=== PATIENT | female | born 1930 | race Caucasian/White ===

== ENCOUNTER → 2016-04-01 | Outpatient (CLI) | payer OTHER, MEDICARE ==
[~2016-04-01] MED LIST: ALBUTEROL2.5 MG/0.5 INH; ALIGN4 MG PO; ASACOL; CALCIUM; COLACE100 MG PO; DULCOLAX PO; GABAPENTIN 100100 MG PO; HYDROXYZINE HCL25 M1 PO; LIDODERM 5%1 PATCH TOP; MACROBID 100 M100 M1 PO; MEDROL DOSPAK21 TA1 PO; MIRALAX17 GM PO; MUCINEX TA600 MG/TA2 PO; MULTIVITAMINS PO; PERCOCET PO; PREDNISONE 10 M10 MG PO; PREDNISONE 20 M20 MG PO; PROAIR HFA8.5 GM INH; PULMICORT0.25 MG/3 INH; SINGULAIR 10 MG10 M1 PO; SYSTANE 0.3-0.1 EACH OPHTHALMIC; TRAMADOL 50 MG50 MG PO; TYLENOL325 MG PO; VENTOLIN HFA 1818 GM INH; VISTARIL 25 MG25 M1 PO; VITAMIN D1000 UNI1 OR; XARELTO10 MG PO; ZYRTEC10 MG PO
== END ==
LOC: ULTRA 14:49
DX: N64.4 Mastodynia (principal)

== ENCOUNTER 2016-07-17 19:05 | Emergency (ER) | payer OTHER, MEDICARE ==
[~2016-07-17] VITALS: Ht 157.5 cm; Wt 51.3 kg
[2016-07-18] MEDS ORDERED: PERCOCET 5-3251 EACH PO (00:02)
[2016-07-18 00:30] VITALS: BP 148/72
== END 2016-07-18 00:30 | disposition home or self-care (01) ==
LOC: ER 19:05
DX: S62.501A Fracture of unspecified phalanx of right thumb, initial encounter for closed fracture (principal); S05.31XA Ocular laceration without prolapse or loss of intraocular tissue, right eye, initial encounter; S01.511A Laceration without foreign body of lip, initial encounter; S51.012A Laceration without foreign body of left elbow, initial encounter; S01.21XA Laceration without foreign body of nose, initial encounter; S80.211A Abrasion, right knee, initial encounter; J45.909 Unspecified asthma, uncomplicated; Z90.49 Acquired absence of other specified parts of digestive tract; Z90.710 Acquired absence of both cervix and uterus; Z88.5 Allergy status to narcotic agent; Z88.6 Allergy status to analgesic agent; Z88.0 Allergy status to penicillin; Z88.1 Allergy status to other antibiotic agents; W01.0XXA Fall on same level from slipping, tripping and stumbling without subsequent striking against object, initial encounter; Y93.89 Activity, other specified; Y92.89 Other specified places as the place of occurrence of the external cause; Y99.8 Other external cause status

== ENCOUNTER → 2016-10-29 | Outpatient (CLI) | payer OTHER, MEDICARE ==
[~2016-10-29] MED LIST changes: +PERCOCET 5-3251 EACH PO
== END ==
LOC: RAD 10:09
DX: Z12.31 Encounter for screening mammogram for malignant neoplasm of breast (principal)

== ENCOUNTER → 2016-11-05 | Outpatient (CLI) | payer OTHER, MEDICARE | LOC: CAT 13:36 | DX: M47.896 Other spondylosis, lumbar region (principal); M16.0 Bilateral primary osteoarthritis of hip; R10.2 Pelvic and perineal pain ==

== ENCOUNTER → 2016-11-10 | Outpatient (CLI) | payer OTHER, MEDICARE | LOC: MRI 09:22 | DX: S32.039A Unspecified fracture of third lumbar vertebra, initial encounter for closed fracture (principal); M51.37 Other intervertebral disc degeneration, lumbosacral region; X58.XXXA Exposure to other specified factors, initial encounter; Y93.89 Activity, other specified; Y92.89 Other specified places as the place of occurrence of the external cause; Y99.8 Other external cause status ==

== ENCOUNTER 2017-08-18 18:57 | Inpatient (IN) | payer OTHER, MEDICARE ==
[~2017-08-18] VITALS: Ht 154.9 cm; Wt 61.2 kg
--- NOTE | ~2017-08-18 | H ---
[facility] [place] [address] HISTORY AND PHYSICAL Name: ELPIDIO WALTERS Room #: 418-P ADM IN M.R.#: [id number] Admission: 08/18/17 Attend Phys: Caleb Beverly MD Discharge: Date of : 31 Report #: [id number] THIS REPORT FOR: //name// CC: Caleb Beverly DATE OF SERVICE: 08/18/2017 This is a patient with known asthma, who presented to the Emergency Room after falling at [facility]. HISTORY OF PRESENT ILLNESS: This patient has an underlying history of asthma and allergies with chronic sinusitis and on Thursday, 08/15, she began to cough. She did not have fever, chills, night sweats or malaise at that time, but did have a deep cough, which persisted. On 08/17, she noticed that she was unable to eat and Thursday night, she did not sleep. She remained with malaise throughout the day on 08/18 and at the evening meal, she vomited while attempting to eat and subsequently lost consciousness. The patient fell, struck her head, was brought to the Emergency Room, where she was found to have a leukocytosis of 15,000 and a pulmonary infiltrate in the right infrahilar region consistent with community-acquired pneumonia. She was hospitalized for care. PAST MEDICAL HISTORY: Has allergies and asthma with chronic sinusitis. In 2000, had a seizure. 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 Has had osteoarthritis, colon polyps, microscopic colitis, hypertension and periodontal disease. PAST SURGICAL HISTORY: In 1956, had cholecystectomy and appendectomy; 1981, total abdominal hysterectomy, bilateral salpingo-oophorectomy and MMK procedure. Has had excision of a scalp cyst, left breast cyst; right breast mammotome biopsy; left foot surgery; bilateral cataracts; and in 04/2016 had surgical repairs of hip, wrist and humerus fractures. ALLERGIES: PENICILLIN, SULFA, ASPIRIN, VANCOMYCIN and ERYC (ERYTHROMYCIN BASE). CURRENT MEDICATIONS: Singulair 10 mg, albuterol inhaler p.r.n., famotidine 20 mg b.i.d., losartan 50 with HCTZ 12.5 mg, alprazolam 0.25 mg at bedtime, and escitalopram 10 mg daily. SOCIAL HISTORY: The patient is , lives at [facility] with her . Does not smoke, does not consume alcohol or use recreational drugs. She has macular degeneration and has had declining performance status. REVIEW OF SYSTEMS: Denies having fever, chills or sweats. Cough has been minimally productive. She had anorexia and did vomit last evening, has had no diarrhea or abdominal pain. [facility] [address] [place] [address] HISTORY AND PHYSICAL Name: ELPIDIO WALTERS MILAN Room #: 418-P ADM IN M.R.#: [id number] Admission: 08/18/17 Attend Phys: Caleb Beverly MD Discharge: Date of : 31 Report #: [id number] PHYSICAL EXAMINATION: GENERAL: This is an elderly female who is warm to touch, slightly diaphoretic. LUNGS: Show coarse rhonchi and no rales in the mid posterior right lung, with the left being essentially clear. CARDIOVASCULAR: There is a brief aortic insufficiency murmur. Heart rate is 82 and regular. No peripheral edema is present. ABDOMEN: Soft and nontender. NEUROLOGIC: The patient is awake, alert, oriented, moves all extremities, has no focal neurologic deficit. IMPRESSION: 1. Community-acquired pneumonia, right mid lung. 2. Syncope secondary to #1. 3. Asthma, exacerbated secondary to #1. 4. Benign essential hypertension. PLAN: I will resume her home medications with reduced dose of losartan. Treat with combination of azithromycin and ceftriaxone in spite of her known PENICILLIN allergy. DuoNeb treatments, oral prednisone to begin at 30 mg a day with the expected hospital stay of 48 hours. We will ask for physical therapy assessment because of falls and balance issues. <ELECTRONICALLY SIGNED> By: Caleb Beverly MD 08/20/17 0625 0721 0750 Caleb Beverly MD /nt
--- NOTE | ~2017-08-18 | PATH ---
[facility] [address] [place] [address] PATHOLOGY RPT PROCEDURE Name: ELPIDIO WALTERS Room #: 225-P ADM IN M.R.#: [id number] Admission: 08/18/17 Date of : 31 Discharge: Report #: [id number] Path Case #: [id number] Note [facility] Accession Number: [id number] TESTS RESULT FLAG UNITS REF RANGE LAB Clinician Provided Cytology Information No. of containers..01 Other (Miscellaneous) Source: BRONCHIAL WASHING DIAGNOSIS: 02 BRONCHIAL WASHING NEGATIVE FOR MALIGNANT CELLS. SCANT CELLULARITY. FUNGAL ORGANISMS MORPHOLOGICALLY CONSISTENT WITH "ROMEO" SPECIES ARE PRESENT. NORMAL BRONCHIAL CELLS AND MACROPHAGES ARE PRESENT. Signed out by: Paula Malhotra MD, Pathologist NPI- [id number] Performed by: Isaias Alvarado, Solid Waste Disposal Manager ([facility]) Gross description: 01 12ML, COLORLESS, CLOUDY /LCS FLAG LEGEND: L-Low Normal,H-High Normal,LL-Alert Low,HH-Alert High <-Panic Low,>-Panic High,A-Abnormal,AA-Critical Abnormal Performed at: [address] [place] [address] Guanako Yang MD, [address] [address] Paula Malhotra MD, Performed at: [address], [place], [place] [id number] MD Guanako Yang MD Phone: [phone]
--- NOTE | ~2017-08-18 | EKG ---
[place] [address] [email or web address] [place] [address] ELECTROCARDIOGRAM REPORT Name: ELPIDIO WALTERS MILAN Room #: 418-P ADM IN M.R.#: [id number] Admission: 08/18/17 Attend Phys: Caleb Beverly MD Discharge: Date of : 31 Report #: [id number] THIS REPORT FOR: //name// [facility] ED Test Date: 2017-08-18 Test Time: 19:02:47 Pat Name: ELPIDIO WALTERS Department: Room: Gender: F Drafter (Cad) Electrical: MZOOK : 1930 Requested By: Jesus Luciano Order Number: [id number] MD: Ronald Gilliam Measurements Intervals [place] Rate: 78 P: 65 SC: 146 QRS: 65 QRSD: 89 T: 58 QT: 387 QTc: 441 Interpretive Statements Sinus rhythm No significant abnormality Compared to ECG 04/19/2016 08:15:48 Atrial premature complex(es) no longer present Electronically Signed On 08-19-2017 7:36:35 CDT by Ronald Gilliam [email or web address] <ELECTRONICALLY SIGNED> By: Ronald Gilliam MD, [facility] 08/19/17 0736 01 01 Ronald Gilliam MD, [facility] /EPI
--- NOTE | ~2017-08-18 | D ---
[facility] [address] [address] [address] DISCHARGE SUMMARY Name: ELPIDIO WALTERS Room #: 225-P [facility] IN M.R.#: [id number] Admission: 08/18/17 Attend Phys: Caleb Beverly MD Discharge: 08/27/17 Date of : 31 Report #: [id number] THIS REPORT FOR: //name// CC: Caleb Beverly DATE OF SERVICE: 08/27/2017 DATE OF ADMISSION: 08/18/2017 DATE OF DISCHARGE: 08/27/2017 HOSPITAL COURSE: This patient presented to the emergency department on the evening of 08/18/2017 where she was initially seen by nurse practitioner, Jesus Luciano. The patient had nausea, vomiting, and syncope. She had not been eating well for approximately 2 days and when fed dinner, she had a couple of bites, then vomited up food. Her reported that she subsequently "fainted for a few seconds" and fell out of the chair. By the time she was in the emergency department, the patient was alert and ambulatory. In the emergency department, the patient reported a 3-day history of cough, which preceded the episode of vomiting. She was somewhat short of air and reported some mucus production without fever or chills. She was assessed by Jesus Luciano and chest x-ray suggested increased focal opacity in the right infrahilar region suggestive of focal pneumonia or aspiration. DuoNeb breathing treatment was administered. The patient was initiated on a combination of methylprednisolone, ceftriaxone, and azithromycin and was hospitalized with a diagnosis of community-acquired pneumonia with nausea, vomiting, and syncope HOSPITAL COURSE: The patient was admitted with pneumonia, which on CT scan was localized in the right middle lobe. The patient was seen in pulmonary consultation by Fly Atkins MD, who on 08/21/2017 performed fiberoptic bronchoscopy with clearance of mucus plugging and debris in the right middle lobe and bronchus intermedius. Antibiotic coverage was converted to meropenem to cover aspirated organisms, but cultures failed to identify a dominant bacteria. Of note, bronchial secretions contained many yeast, felt to be a probable upper respiratory contaminant. The patient underwent video swallow, during which the patient had difficulty clearing a barium tablet from her vallecula. Her aspiration risk was judged by speech therapy to be relatively low, but in discussions with Dr. Hooks, the 6-month history of voice change in combination with aspiration and the video swallow findings, it is obvious the patient has a neurodegenerative process, which places her at risk for recurrence. The patient was treated with flutter valve frequent aerosolized DuoNeb, guaifenesin orally, and intravenous meropenem, but imaging of the chest showed persistent infiltrate and increased atelectasis in the right middle lobe when [facility] [address] [place] [address] DISCHARGE SUMMARY Name: ROMEOELPIDIO MILAN Room #: 225-P [facility] IN M.R.#: [id number] Admission: 08/18/17 Attend Phys: Caleb Beverly MD Discharge: 08/27/17 Date of : 31 Report #: [id number] last compared 08/23/2017. Ongoing pulmonary toilet was recommended. The patient admits deficits with transfers and balance. She was seen in consultation on 08/27/[address] Foster Bee who recommended transfer to acute inpatient rehab where she can continue her pulmonary care. During hospitalization, the patient had significant hypertension requiring modification of her blood pressure medications, which resulted in improvement. FINAL DIAGNOSES: 1. Right middle lobe pneumonia and atelectasis, aspiration type. 2. Acute pulmonary aspiration. 3. Asthma, chronic with acute exacerbation secondary to #1. 4. Benign essential hypertension. 5. Neurodegenerative disorder, unclassified. DISCHARGE MEDICATIONS: Spironolactone 12.5 mg daily, montelukast 10 mg daily, losartan 100 mg daily, fluconazole 100 mg suspension daily, citalopram 10 mg daily, azithromycin 500 mg daily, amlodipine 5 mg daily, pantoprazole 40 mg daily, hydrochlorothiazide 12.5 mg daily, prednisone 20 mg b.i.d., meropenem 500 mg q. 8 hours, Lovenox 40 mg subcutaneous daily, aerosolized ipratropium, albuterol, budesonide, alprazolam 0.5 mg at bedtime for sleep and alprazolam 0.25 mg q. 4 hours for anxiety. DISPOSITION: The patient is transferred to the acute inpatient Service under the care of Dr. Bee. CONSULTANTS: 1. Foster Bee MD (rehabilitation medicine). 2. Fly Atkins MD, pulmonary medicine. PROCEDURES: Fiberoptic bronchoscopy. COMPLICATIONS: None. <ELECTRONICALLY SIGNED> By: Caleb Beverly MD 08/29/17 1111 0554 0818 Caleb Beverly MD /nt
--- NOTE | ~2017-08-18 | P ---
[facility] [place] [address] [address] PROCEDURE REPORT Name: ELPIDIO WALTERS Room #: 452-P ADM IN M.R.#: [id number] Admission: 08/18/17 Attend Phys: Caleb Beverly MD Discharge: Date of : 31 Report #: [id number] THIS REPORT FOR: //name// CC: Caleb Beverly MD DATE OF SERVICE: 08/21/2017 PROCEDURE: Fiberoptic bronchoscopy with clearance of mucus plugging and debris in right middle lobe and bronchus intermedius. ASA classification class 2. PROCEDURE NOTATION: After discussing risks, benefits of planned procedure with the patient, she desired to proceed. After obtaining informed consent, she was brought to mine laborer 3 where she was placed on continuous cardiopulmonary monitoring and supplemental oxygen, given 2% lidocaine nebulized to anesthetize the upper respiratory tract. Once accomplished, she received conscious sedation, a total of 3 mg of Versed were titrated during the procedure for adequate sedation. Bronchoscope was then passed through an oral bite block until the vocal cords were visualized. Lidocaine 1% was instilled in the vocal cords to provide topical anesthesia. Bronchoscope was then passed in the trachea where 1% lidocaine was instilled in the tracheobronchial tree bilaterally to provide topical anesthesia. Once complete, airways were surveyed. FINDINGS: Mainstem lower segmental and subsegmental bronchi were all explored and appeared patent without any significant anatomic variation or disease with the exception of the right middle lobe and bronchus was extremely plugged with mucus that was thick and white as well as some segments of the bronchus intermedius and portions of the right lower lobe. These findings were all purged and aspirated. Some of the material that was aspirated appeared to be vegetable debris. The bronchoscope was occluded on 2 occasions by thick mucus that occluded the channel and distally beyond large mucus bronchial casts were pulled from the airway as the bronchoscope was completely removed and flushed into a separate container. The bronchoscope was then reinserted to continue the procedure after those 2 occasions. The airways were extremely patent at the end of procedure. The airways were significantly edematous, but open. No significant secretions remain and no significant mucus plugging remain. The patient tolerated well. No noted complications. IMPRESSION: Pneumonia with postobstructive pneumonia, status post bronchoscopy with washings and clearance of airway debris. [facility] [address] [place] [address] PROCEDURE REPORT Name: ELPIDIO WALTERS MILAN Room #: 452-P [facility] IN M.R.#: [id number] Admission: 08/18/17 Attend Phys: Caleb Beverly MD Discharge: Date of : 31 Report #: [id number] PLAN: Await GI and speech therapy evaluations further. Continue with current antibiotic therapy and airway clearance. Await cultures. By: [id number] [id number] Fly Atkins MD /nt
[2017-08-18 18:58] VITALS: BP 135/63
[2017-08-18 19:16] LABS: ABSOLUTE NEUTROPHILS 11.8 thou/uL (1.4-8.2); BASOPHILS 0.4 % (0.0-2.0); EOSINOPHILS 0.9 % (0.0-3.0); HEMATOCRIT 40.8 % (37.0-47.0); HEMOGLOBIN 13.6 gm/dL (12.0-15.0); LYMPHOCYTES 8.8 % (24.0-44.0); MCH 30.7 pg (26.0-34.0); MCHC 33.4 g/dL (28.0-37.0); MCV 91.9 fL (80.0-100.0); MONOCYTES 11.5 % (1.0-8.0); PLATELET COUNT 211 thou/uL (150-400); POLYS 78.4 % (36.0-66.0); RBC 4.44 mil/uL (4.20-5.00); RDW 14.1 % (10.5-14.5)
[2017-08-18 19:23] LABS: ANION GAP 9 mmol/L (7-16); BUN 19 mg/dL (7-18); CALCIUM 9.4 mg/dL (8.5-10.1); CHLORIDE 98 mmol/L (98-107); CO2 27 mmol/L (21-32); CREATININE 0.8 mg/dL (0.6-1.0); GLUCOSE 156 mg/dL (74-106); POTASSIUM 3.8 mmol/L (3.5-5.1); SODIUM 134 mmol/L (136-145)
[2017-08-18 19:32] LABS: ALBUMIN 3.8 g/dL (3.4-5.0); LIPASE 87 U/L (73-393); SGOT 18 U/L (15-37); SGPT 17 U/L (30-65); TOTAL PROTEIN 7.7 g/dL (6.4-8.2); TROPONIN-I < 0.04 ng/mL (<0.06)
[2017-08-18] MEDS ORDERED: HYZAAR 50-12.51 EACH PO (20:29)
[2017-08-18] MEDS ORDERED: LEXAPRO 10 MG T10 M1 PO (20:30)
[2017-08-18] MEDS ORDERED: XANAX 0.5 MG0.5 MG PO (20:30)
[2017-08-18 20:35] VITALS: BP 128/55
[2017-08-18 20:48] LABS: URINE BILIRUBIN NEGATIVE (Negative); URINE BLOOD NEGATIVE (Negative); URINE CLARITY CLEAR; URINE COLOR YELLOW; URINE GLUCOSE-RANDOM* NEGATIVE (Negative); URINE KETONES TRACE (Negative); URINE LEUKOCYTES-REFLEX 3+ (Negative); URINE NITRITE-REFLEX NEGATIVE (Negative); URINE PROTEIN (DIPSTICK) NEGATIVE (Negative); URINE SPECIFIC GRAVITY 1.015 (1.005-1.035)
[2017-08-18 20:56] LABS: BACTERIA-REFLEX 1-9 Few /HPF (None Seen); CASTS None Seen /LPF (None Seen); CRYSTALS None Seen /LPF (None Seen); SQUAMOUS 0-3 Few /LPF (0-3); URINE RBC None Seen /HPF (0-2)
[2017-08-18 21:24] VITALS: BP 128/78
[2017-08-18 21:40] VITALS: BP 132/54
[2017-08-19 04:06] VITALS: BP 100/41
[2017-08-19 07:00] VITALS: BP 135/88
[2017-08-19 20:00] VITALS: BP 145/47
[2017-08-20 05:23] VITALS: BP 144/60
[2017-08-20 07:51] LABS: HEMATOCRIT 36.1 % (37.0-47.0); HEMOGLOBIN 12.1 gm/dL (12.0-15.0); MCH 30.7 pg (26.0-34.0); MCHC 33.4 g/dL (28.0-37.0); RBC 3.93 mil/uL (4.20-5.00); RDW 14.1 % (10.5-14.5); WBC 13.7 thou/uL (4.0-11.0)
[2017-08-20 08:03] VITALS: BP 143/54
[2017-08-20 16:11] VITALS: BP 137/65
[2017-08-20 19:15] VITALS: BP 142/47
[2017-08-21 03:13] LABS: BE(vivo) -0.6 mmol/L (-2 to +3); HCO3 23.4 mmol/L (22.0-26.0); PCO2 36.7 mmHg (35.0-45.0); PO2 82.7 mmHg (80.0-100.0); pH 7.423 (7.360-7.450); sO2 96.4 % (92.0-98.0)
[2017-08-21 03:52] VITALS: BP 181/91
[2017-08-21 03:57] LABS: HEMATOCRIT 37.1 % (37.0-47.0); HEMOGLOBIN 12.2 gm/dL (12.0-15.0); MCH 30.5 pg (26.0-34.0); MCV 92.5 fL (80.0-100.0); RBC 4.01 mil/uL (4.20-5.00); RDW 14.3 % (10.5-14.5); WBC 11.7 thou/uL (4.0-11.0)
[2017-08-21 04:04] LABS: CALCIUM 9.8 mg/dL (8.5-10.1); CREATININE 0.8 mg/dL (0.6-1.0); POTASSIUM 3.6 mmol/L (3.5-5.1)
[2017-08-21 04:42] LABS: ABSOLUTE NEUTROPHILS 8.3 thou/uL (1.4-8.2); BASOPHILS 0.1 % (0.0-2.0); EOSINOPHILS 0.1 % (0.0-3.0); HEMATOCRIT 36.9 % (37.0-47.0); HEMOGLOBIN 12.3 gm/dL (12.0-15.0); LYMPHOCYTES 16.2 % (24.0-44.0); MCH 30.6 pg (26.0-34.0); MCHC 33.2 g/dL (28.0-37.0); MCV 92.2 fL (80.0-100.0); MONOCYTES 11.5 % (1.0-8.0); PLATELET COUNT 237 thou/uL (150-400); POLYS 72.1 % (36.0-66.0); RBC 4.01 mil/uL (4.20-5.00); RDW 14.2 % (10.5-14.5); WBC 11.6 thou/uL (4.0-11.0)
[2017-08-21 06:23] VITALS: BP 177/90
[2017-08-21 10:52] VITALS: BP 156/73
[2017-08-21 16:20] VITALS: BP 185/81
[2017-08-21 23:09] LABS: ADENOVIRUS Negative (Negative); INFLUENZA A Negative (Negative); INFLUENZA B Negative (Negative); METAPNEUMOVIRUS Negative (Negative); PARAINFLUENZA 1 Negative (Negative); PARAINFLUENZA 2 Negative (Negative); PARAINFLUENZA 3 Negative (Negative); RHINOVIRUS Negative (Negative); RSV A Negative (Negative); RSV B Negative (Negative)
[2017-08-22 02:56] VITALS: BP 180/92
[2017-08-22 09:04] VITALS: BP 173/85
[2017-08-22 16:07] VITALS: BP 147/67
[2017-08-22 19:17] VITALS: BP 141/65
[2017-08-23 04:07] VITALS: BP 191/81
[2017-08-23 05:05] LABS: HEMATOCRIT 35.4 % (37.0-47.0); HEMOGLOBIN 11.7 gm/dL (12.0-15.0); MCH 30.8 pg (26.0-34.0); MCHC 33.1 g/dL (28.0-37.0); RBC 3.81 mil/uL (4.20-5.00); RDW 14.3 % (10.5-14.5); WBC 7.6 thou/uL (4.0-11.0)
[2017-08-23 08:00] VITALS: BP 209/99
[2017-08-23 16:00] VITALS: BP 137/56
[2017-08-23 19:45] VITALS: BP 151/81
[2017-08-24 03:49] VITALS: BP 188/95
[2017-08-24 09:08] VITALS: BP 186/71
[2017-08-24 17:18] VITALS: BP 147/65
[2017-08-24 20:10] VITALS: BP 177/80
[2017-08-25 07:14] LABS: CALCIUM 8.6 mg/dL (8.5-10.1); CREATININE 0.8 mg/dL (0.6-1.0); POTASSIUM 3.5 mmol/L (3.5-5.1)
[2017-08-25 08:11] VITALS: BP 161/75
[2017-08-25 20:14] VITALS: BP 130/64
[2017-08-26] VITALS (8 sets, daily range): BP systolic 134–194; BP diastolic 57–84
[2017-08-26 07:41] LABS: CALCIUM 8.7 mg/dL (8.5-10.1); CREATININE 0.8 mg/dL (0.6-1.0); POTASSIUM 3.7 mmol/L (3.5-5.1)
[2017-08-27 07:39] VITALS: BP 167/74
[2017-08-27 07:47] LABS: CALCIUM 9.6 mg/dL (8.5-10.1); CREATININE 0.8 mg/dL (0.6-1.0); MAGNESIUM 2.1 mg/dL (1.8-2.4); POTASSIUM 3.2 mmol/L (3.5-5.1)
== END 2017-08-27 16:45 | DRG 178 ==
LOC: ER 18:57 → SICU 20:33 → 4E 20:33 → SICU 20:33 → EROBS 20:33 → 4E 21:38 → 4W 08-21 20:37 → SICU 08-24 17:56
PROVIDERS: Internal Medicine; Physician Assistant
PROC: 0BC58ZZ Extirpation of Matter from Right Middle Lobe Bronchus, Via Natural or Artificial Opening Endoscopic (ICD-10-PCS; principal; 2017-08-21)
DX: J69.0 Pneumonitis due to inhalation of food and vomit (principal); J45.901 Unspecified asthma with (acute) exacerbation; N39.0 Urinary tract infection, site not specified; J98.11 Atelectasis; R41.9 Unspecified symptoms and signs involving cognitive functions and awareness; I10 Essential (primary) hypertension; M81.0 Age-related osteoporosis without current pathological fracture; M19.90 Unspecified osteoarthritis, unspecified site; G62.9 Polyneuropathy, unspecified; K21.9 Gastro-esophageal reflux disease without esophagitis; B37.9 Candidiasis, unspecified; J45.909 Unspecified asthma, uncomplicated; Z90.49 Acquired absence of other specified parts of digestive tract; Z90.710 Acquired absence of both cervix and uterus; Z88.6 Allergy status to analgesic agent; Z88.1 Allergy status to other antibiotic agents; Z88.0 Allergy status to penicillin; Z88.2 Allergy status to sulfonamides; Z88.8 Allergy status to other drugs, medicaments and biological substances; Z86.010 Personal history of colon polyps; Z90.722 Acquired absence of ovaries, bilateral; Z98.42 Cataract extraction status, left eye; Z98.41 Cataract extraction status, right eye; Z87.81 Personal history of (healed) traumatic fracture; Z80.0 Family history of malignant neoplasm of digestive organs; Z80.8 Family history of malignant neoplasm of other organs or systems
CPT/HCPCS: 10045; 10183; 15002

== ENCOUNTER 2017-08-27 13:53 | Inpatient (IN) | payer OTHER, MEDICARE ==
[~2017-08-27] VITALS: Ht 157.5 cm; Wt 52.9 kg
--- NOTE | ~2017-08-27 | H ---
[facility] [place] [address] HISTORY AND PHYSICAL Name: ELPIDIO WALTERS Room #: 506-1 ADM IN M.R.#: [id number] Admission: 08/27/17 Attend Phys: Foster Bee MD Discharge: Date of : 31 Report #: [id number] THIS REPORT FOR: //name// CC: Foster Beverly DATE OF SERVICE: 08/27/2017 HISTORY AND PHYSICAL/POST ADMISSION PHYSICIAN EVALUATION HISTORY OF PRESENT ILLNESS: The patient is an 86-year-old white female, who originally presented to the Emergency Department after a syncopal episode in her independent living apartment. She had been feeling sick for 2 days prior, and an episode of emesis, fainting spell and fell from the chair to the floor. It is uncertain if she hit her head. Although, the spouse had reported that there were a few seconds of loss of consciousness. CT of the head was negative for an acute process. She was admitted and treated for pneumonia. She does have a prior history noted of gait instability with recurrent falls and has noted degenerative cerebellar ataxia. Gastroenterology was involved. CTA showed diffuse esophageal wall thickening. Video swallow showed a few episodes of minimal transient superior laryngeal consistency. The community-acquired pneumonia was thought to be most likely from aspiration. Pulmonary medicine has been involved. The patient was seen by Speech Therapy and is on a mechanical soft, thin liquid diet. She does have decreased functional mobility and ADLs with the cerebellar ataxia and has had a decline in her functional abilities. She has now been admitted for an acute in-hospital inpatient rehabilitation stay. PAST MEDICAL HISTORY: Includes hypertension, asthma, seizure, osteoporosis, peripheral sensory neuropathy with an ataxic gait, osteoarthritis, appendectomy, cataracts, cholecystectomy, wrist and humerus fractures. HABITS: Nonsmoker, no history of alcohol abuse. MEDICATIONS: Please see the full medication listing. ALLERGIES: SULFA, ASPIRIN, CODEINE, ERYTHROMYCIN, PENICILLIN AND VANCOMYCIN. SOCIAL HISTORY: Lives in an independent living apartment at [facility] with her spouse. Utilized a walker premorbidly was involved in exercise classes. REVIEW OF SYSTEMS: Did not offer any current complaints of chest pain, shortness of breath or abdominal discomfort. Denies any focal extremity pain complaints. [address] [address] HISTORY AND PHYSICAL Name: ELPIDIO WALTERS Room #: 506-1 ADM IN ..#: [id number] Admission: 08/27/17 Attend Phys: Foster Bee MD Discharge: Date of : 31 Report #: [id number] PHYSICAL EXAMINATION: GENERAL: She is a pleasant 86-year-old white female, in no obvious distress. VITAL SIGNS: Last recorded temperature 98.7, pulse 77, respirations 18, blood pressure is 154/72. HEENT: Facies appeared symmetric. EOMs appeared to be intact. CHEST: There is some diffuse decreased breath sounds. CARDIOVASCULAR: Regular rate and rhythm. ABDOMEN: Bowel sounds positive, nontender. She has a slender body habitus. EXTREMITIES: Functional range of motion of both upper extremities. She does have some dysmetria with some decreased degtyy-te-wsic and some decreased with yewe-rn-nker. Decreased distal lower extremity sensation. She has no focal calf swelling. Strength is a grade 4/5 in both upper and lower extremities. Functionally, she is transferring with contact guard. Gait has been min assist short distances with the walker. Toilet transfers have been min assist. ASSESSMENT: An 86-year-old white female with the following problem list: 1. Degenerative cerebellar ataxia. 2. Gait instability with recurrent falls. 3. Syncopal event. 4. Peripheral sensory polyneuropathy premorbidly. 5. Pneumonia. 6. Asthma history. 7. Gastroesophageal reflux disease. 8. Hypertension. PLAN: The patient is admitted for acute in-hospital inpatient rehabilitation. From a postadmission physician evaluation perspective, there are no relevant changes since the preadmission screening. Please see the above review of prior and current medical and functional conditions and comorbidities. Please see the patient's previous and current functional status. As far as risk of complications, the patient has multiple medical comorbidities as noted above. Initial plan of care involves the interdisciplinary acute inpatient rehabilitation program with goal of maximizing the patient's functional independence, so that she can hopefully return back to her prior living situation. Measurable functional goals would be for her to become modified independent at the walker level with mobility and ADLs. Speech Therapy is following as well regarding swallowing issues. Prognosis is reasonably good with estimated length of stay probably fairly short around 5-10 days pending progress. Potential barriers would include her multiple medical comorbidities and decreased functional status. The patient meets diagnostic criteria for an acute in-hospital inpatient rehabilitation stay. She meets medical necessity criteria and we will have the [address] [address] HISTORY AND PHYSICAL Name: ROMEOELPIDIO Room #: 506-1 ADM IN M.R.#: [id number] Admission: 08/27/17 Attend Phys: Foster Bee MD Discharge: Date of : 31 Report #: [id number] [facility] consultant physicians continue to follow. She does have the tolerance for therapies and has appropriate discharge goals back to the home setting. <ELECTRONICALLY SIGNED> By: Foster Bee MD 08/28/17 1314 0836 0912 Foster Bee MD /nt
--- NOTE | ~2017-08-27 | HC ---
[facility] [address] [place] [address] CONSULTATION Name: ELPIDIO WALTERS Room #: 506-1 ADM IN M.R.#: [id number] Admission: 08/27/17 Attend Phys: Foster Bee MD Discharge: Date of : 31 Report #: [id number] THIS REPORT FOR: //name// CC: Foster Beverly DATE OF SERVICE: 08/29/2017 NEUROBEHAVIORAL STATUS EXAMINATION ATTENDING PHYSICIAN: Foster Bee MD RATE MANAGER: Paramjit Sahni, PhD CLINICAL PRESENTATION: The patient is an 86-year-old female, admitted to the rehab unit at [facility] for comprehensive inpatient rehabilitation to improve functional mobility, activities of daily living and self-care and mental status secondary to deficits from degenerative cerebellar ataxia. She presents with gait instability and recurrent falls. The diagnostic assessment includes syncopal event, peripheral sensory polyneuropathy, pneumonia, asthma, gastroesophageal reflux disease, and hypertension. A complete description of her medical condition and history can be found in her medical record. Neuropsychological consultation was requested to provide assistance in the assessment of cognitive and emotional status and to provide recommendations and services. Prior to this most recent medical event, she reports living independently in her home with her . 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 She had 2 children. She is one of 4 siblings. The patient is a high school graduate. She reports having been independent with basic and instrumental activities of daily living. However, difficulty with transferring and walking led to her discontinuation of driving. The patient does report frustration with the symptoms associated with her condition. TECHNIQUES UTILIZED: Clinical interview, review of medical records, staff consultation and behavioral observation, mini mental status exam 2 standard version and clock drawing. EXAMINATION FINDINGS: The patient was alert and cooperative with the assessment. She accurately described events surrounding her admission. There is no evidence of aphasia. Thoughts are logical and goal oriented. There is no report of auditory or visual hallucinations. She described having had difficulty with falling. She reports not having hit her head upon this fall. She reports difficulty with sleep. She denies depression, anxiety or problems [facility] [address] [place] [address] CONSULTATION Name: ELPIDIO WALTERS [facility] Room #: 506-1 ADM IN M.R.#: [id number] Admission: 08/27/17 Attend Phys: Foster Bee MD Discharge: Date of : 31 Report #: [id number] with appetite at this time. Cognition is reported as within normal limits. Her performance on the MMSE 2 brief version is within normal limits with a raw score of 15/16. She was 3/3 for initial registration, 5/5 for orientation to time and place. She was 2/3 for immediate recall of 3 items after a brief time delay and distraction. Her performance on the MMSE 2 standard version is within normal limits with a raw score of 29/30. She was 5/5 for serial 7's. She could read and follow a single command, write a sentence and copy a simple geometric design. Clock drawing is within normal limits for visual spatial organization and hand placement. 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 Unspecified anxiety disorder RECOMMENDATIONS: The patient has questions regarding her diagnosis and the implications of the cerebellar ataxia. Problems include swallowing, expressive speech and sequencing of purposeful movement. The patient will benefit from educational information in regard to cerebellar ataxia. Family conference may be necessary to assist in the determination of environmental modifications that would be of benefit to improve safety. Thank you very much for allowing me to provide the consultation on this patient. <ELECTRONICALLY SIGNED> By: Paramjit Sahni, PhD 08/31/17 1808 1521 1556 Paramjit Sahni, PhD /nt
--- NOTE | ~2017-08-27 | PLAN ---
[facility] [place] [address] REHAB UNIT PLAN OF CARE Name: ELPIDIO WALTERS Room #: 506-1 ADM IN M.R.#: [id number] Admission: 08/27/17 Attend Phys: Foster Bee MD Discharge: Date of : 32 Report #: [id number] THIS REPORT FOR: //name// CC: Foster Beverly DATE OF SERVICE: 08/29/2017 PROGRESS NOTE AND OVERALL PLAN OF CARE The patient was in no acute distress. Last recorded temperature 37, pulse 67, respirations 20, blood pressure 150/75. She has been working in therapies with transfers min assist. Gait min assist 150 feet with a front-wheeled walker. In occupational therapy, lower body dressing is min assist. In speech therapy, she is being followed regarding swallowing issues and is allowed a mechanical soft diet with thin liquids. She has functional comprehension. ASSESSMENT: 1. Degenerative cerebellar ataxia. 2. Gait instability with recurrent falls. 3. Peripheral sensory polyneuropathy. 4. Previous syncopal event. 5. Pneumonia. 6. Asthma history. 7. Gastroesophageal reflux disease. 8. Hypertension. 9. Dysphagia. She is being monitored by Speech Therapy. Did have some problems swallowing her pills as her video swallow study. She had a barium tablet that became stuck in the vallecula. PLAN: The overall plan of care is based on the preadmission screen, post-admission physician evaluation and information garnered from therapy assessments. 1. Estimated length of stay is probably at least 7-10 days, pending progress. 2. Medical prognosis is reasonably good. 3. Anticipated interventions includes the interdisciplinary acute inpatient rehabilitation program with goal of maximizing her functional independence, so she can hopefully return back to her prior living situation. PT and OT are involved. Speech therapy, rehab nursing assisting regarding medication management, skin care prophylaxis, bowel and bladder issues and nursing education. We will have the interdisciplinary rehab team involved as well as the sr. consultant physicians. 4. Anticipated functional outcomes would be for the patient to become modified independent at the walker level. 5. Discharge destination would be back to her independent living apartment at [facility] with her spouse. [facility] [address] [place] [address] REHAB UNIT PLAN OF CARE Name: ELPIDIO WALTERS Room #: 506-1 ADM IN M.R.#: [id number] Admission: 08/27/17 Attend Phys: Foster Bee MD Discharge: Date of : 32 Report #: [id number] 6. Expected therapy by discipline includes PT, OT and speech 1 hour per day each five days a week throughout the duration of the acute inpatient rehabilitation stay. <ELECTRONICALLY SIGNED> By: Foster Bee MD 09/04/17 1228 [id number] [id number] Foster Bee MD /nt
[~2017-08-27 13:53] MED LIST changes: +HYZAAR 50-12.51 EACH PO; +LEXAPRO 10 MG T10 M1 PO; +XANAX 0.5 MG0.5 MG PO
[2017-08-27 20:26] VITALS: BP 150/64
[2017-08-28 05:42] LABS: HEMATOCRIT 38.9 % (37.0-47.0); HEMOGLOBIN 12.9 gm/dL (12.0-15.0); MCH 30.3 pg (26.0-34.0); MCHC 33.1 g/dL (28.0-37.0); MCV 91.7 fL (80.0-100.0); RBC 4.24 mil/uL (4.20-5.00); RDW 14.4 % (10.5-14.5); WBC 11.9 thou/uL (4.0-11.0)
[2017-08-28 06:15] VITALS: BP 159/87
[2017-08-28 06:15] LABS: CALCIUM 9.4 mg/dL (8.5-10.1); CREATININE 0.8 mg/dL (0.6-1.0); POTASSIUM 3.2 mmol/L (3.5-5.1)
[2017-08-28 06:18] VITALS: BP 148/73
[2017-08-28 06:20] VITALS: BP 154/72
[2017-08-28 19:54] VITALS: BP 113/49; BP 129/66
[2017-08-28 19:55] VITALS: BP 144/65
[2017-08-29 04:00] VITALS: BP 188/90
[2017-08-29 05:30] VITALS: BP 191/86
[2017-08-29 06:45] VITALS: BP 150/69
[2017-08-29 08:36] VITALS: BP 157/75
[2017-08-29 19:15] VITALS: BP 122/89
[2017-08-30 05:23] VITALS: BP 189/86
[2017-08-30 07:30] VITALS: BP 177/76
[2017-08-30 10:11] LABS: ABSOLUTE NEUTROPHILS 7.6 thou/uL (1.4-8.2); BASOPHILS 0.1 % (0.0-2.0); EOSINOPHILS 1.1 % (0.0-3.0); HEMATOCRIT 42.7 % (37.0-47.0); HEMOGLOBIN 14.1 gm/dL (12.0-15.0); LYMPHOCYTES 21.2 % (24.0-44.0); MCH 30.8 pg (26.0-34.0); MCV 93.3 fL (80.0-100.0); MONOCYTES 7.3 % (1.0-8.0); PLATELET COUNT 269 thou/uL (150-400); POLYS 70.3 % (36.0-66.0); RBC 4.57 mil/uL (4.20-5.00); RDW 13.9 % (10.5-14.5); WBC 10.8 thou/uL (4.0-11.0)
[2017-08-30 10:21] LABS: CALCIUM 9.5 mg/dL (8.5-10.1); CREATININE 0.8 mg/dL (0.6-1.0); MAGNESIUM 1.9 mg/dL (1.8-2.4); POTASSIUM 3.2 mmol/L (3.5-5.1)
[2017-08-30 19:19] VITALS: BP 117/53
[2017-08-31 07:30] VITALS: BP 123/66
[2017-08-31 07:35] VITALS: BP 112/53; BP 160/70
[2017-08-31 19:20] VITALS: BP 164/72
[2017-08-31 19:25] VITALS: BP 130/68
[2017-08-31 19:29] VITALS: BP 121/54
[2017-09-01 11:15] VITALS: BP 121/57
[2017-09-01 11:17] VITALS: BP 92/55
[2017-09-01 11:20] VITALS: BP 70/41
[2017-09-01 13:30] VITALS: BP 102/53; BP 120/54; BP 93/49
[2017-09-01 19:25] VITALS: BP 93/54
[2017-09-02 04:11] LABS: CALCIUM 8.7 mg/dL (8.5-10.1); CREATININE 0.9 mg/dL (0.6-1.0); MAGNESIUM 1.8 mg/dL (1.8-2.4); POTASSIUM 4.4 mmol/L (3.5-5.1)
[2017-09-02 07:45] VITALS: BP 102/44; BP 124/64; BP 147/68
[2017-09-02 19:18] VITALS: BP 126/49
[2017-09-03 07:10] VITALS: BP 144/67; BP 151/67
[2017-09-03 07:17] VITALS: BP 96/54
[2017-09-03 20:17] VITALS: BP 101/56
[2017-09-03 20:21] VITALS: BP 148/70
[2017-09-03 20:22] VITALS: BP 142/62
[2017-09-04 08:10] VITALS: BP 137/68; BP 164/64
[2017-09-04 08:11] VITALS: BP 137/68
[2017-09-04 08:11] LABS: FOLIC ACID 12.1 ng/mL (8.6-58.9)
[2017-09-05 08:00] VITALS: BP 175/56
[2017-09-05 08:02] VITALS: BP 134/55
[2017-09-05 08:04] VITALS: BP 123/52
[2017-09-05 20:15] VITALS: BP 136/51
[2017-09-05 20:25] VITALS: BP 148/55
[2017-09-05 20:35] VITALS: BP 127/49
[2017-09-06 09:30] VITALS: BP 103/41; BP 133/48; BP 94/44
[2017-09-06 20:00] VITALS: BP 100/72
[2017-09-07 08:15] VITALS: BP 107/43; BP 155/56; BP 163/53
[2017-09-07 19:35] VITALS: BP 149/66
[2017-09-08 08:00] VITALS: BP 178/68
[2017-09-08 19:17] VITALS: BP 135/50
[2017-09-09] MEDS ORDERED: LOPERAMIDE 2 MG2 MG PO (05:43)
[2017-09-09] MEDS ORDERED: PROTONIX40 M1 PO (05:44)
[2017-09-09] MEDS ORDERED: PULMICORT0.25 MG/3 INH (05:59)
[2017-09-09] MEDS ORDERED: PEPCID20 MG PO (05:59)
[2017-09-09 07:45] VITALS: BP 152/55
[2017-09-09 09:51] VITALS: BP 152/55
[2017-09-09 10:07] VITALS: BP 152/55
== END 2017-09-09 12:15 | disposition home health service (06) | DRG 58 ==
LOC: ENTRNSPT 09-09 12:20 → EDTRNSPTSTS 09-09 12:22
PROVIDERS: Internal Medicine; Nurse Practitioner Family
DX: G11.9 Hereditary ataxia, unspecified (principal); J69.0 Pneumonitis due to inhalation of food and vomit; J98.11 Atelectasis; J45.909 Unspecified asthma, uncomplicated; K21.9 Gastro-esophageal reflux disease without esophagitis; I10 Essential (primary) hypertension; M81.0 Age-related osteoporosis without current pathological fracture; G60.8 Other hereditary and idiopathic neuropathies; R13.10 Dysphagia, unspecified; E87.6 Hypokalemia; R29.6 Repeated falls; F41.9 Anxiety disorder, unspecified; I95.1 Orthostatic hypotension; R47.81 Slurred speech; Z90.49 Acquired absence of other specified parts of digestive tract; Z87.81 Personal history of (healed) traumatic fracture; Z88.2 Allergy status to sulfonamides; Z88.0 Allergy status to penicillin; Z88.1 Allergy status to other antibiotic agents; Z88.6 Allergy status to analgesic agent; Z86.010 Personal history of colon polyps; Z80.0 Family history of malignant neoplasm of digestive organs
CPT/HCPCS: 10112